=== PATIENT | male | born 1985 | race Caucasian/White ===

== ENCOUNTER → 2023-01-16 | Outpatient (CLI) | payer BC ==
--- NOTE | 2023-01-16 15:23 | US ---
EXAMINATION TYPE: US Aorta Screening DATE OF EXAM: 01/16/2023 COMPARISON: NONE CLINICAL INDICATION: Male, 37 years old with history of Z82.49 FAMILY HISTORY OF ISCHEMIC HEART DISEA SE; family history of FL's and aortic AAA, no symptoms himself TECHNIQUE: Multiple sonographic images of the abdominal aorta are obtained. FINDINGS: EXAM MEASUREMENTS: Abdominal Aorta: Proximal: not seen due to bowel gas Mid: 1.8 x 1.9cm Distal: 1.6 x 1.9cm Bifurcation: 1.0 x 1.5cm 0.9 x 1.2cm [employer] SUPERVISOR NOTES: proximal portion obscured by bowel gas IMPRESSION: 1. The proximal abdominal aorta is obscured and could not be assessed. Otherwise, no evidence for AAA along the mid to distal portions of the abdominal aorta. 2. The right common iliac artery is borderline ectatic at 1.5 cm.
== END | disposition home or self-care (01) ==
LOC: RADUSWWP 08:32
PROVIDERS: ATTEND Family Medicine
DX: I77.811 Abdominal aortic ectasia (principal); Z85.49 Personal history of malignant neoplasm of other male genital organs
CPT/HCPCS: 76706

== ENCOUNTER → 2023-02-12 | Outpatient (CLI) | payer BC ==
--- NOTE | 2023-02-13 10:19 | CA ---
Transthoracic Echo Report Name: Adarsh Hui Age: 37 Gender: M : 1985 Exam Date: 02/12/2023 11:36 Exam Location: [facility] Ht (in): 75 Wt (lb): 185 Ordering Physician: John Salazar MD Attending/Referring Phys: John Salazar MD Music Video Producer Justine Kim, [facility] Procedure CPT: Indications: z82.49 Cardiac Hx: Technical Quality: Good Contrast 1: Total Dose (mL): Contrast 2: Total Dose (mL): MEASUREMENTS (Male / Female) Normal Values 2D ECHO LV Diastolic Diameter PLAX 4.8 cm 4.2 - 5.9 / 3.9 - 5.3 cm LV Systolic Diameter PLAX 3.2 cm IVS Diastolic Thickness 1.0 cm 0.6 - 1.0 / 0.6 - 0.9 cm LVPW Diastolic Thickness 1.0 cm 0.6 - 1.0 / 0.6 - 0.9 cm LV Relative Wall Thickness 0.4 RV Internal Dim ED PLAX 3.0 cm LA Systolic Diameter LX 3.4 cm 3.0 - 4.0 / 2.7 - 3.8 cm LV Diastolic Volume MOD 4C 125.4 cm??? LV Systolic Volume MOD 4C 49.6 cm??? LV Ejection Fraction MOD 4C 60.4 % LV Cardiac Index MOD 4C 1763.0 cm???/min???m??? LV Diastolic Length 4C 9.5 cm LV Systolic Length 4C 7.4 cm LV Diastolic Volume MOD 2C 93.0 cm??? LV Systolic Volume MOD 2C 29.3 cm??? LV Ejection Fraction MOD 2C 68.5 % LV Cardiac Index MOD 2C 1481.9 cm???/min???m??? LV Diastolic Length 2C 9.4 cm LV Systolic Length 2C 7.5 cm LA Volume 47.4 cm??? 18 - 58 / 22 - 52 cm??? M-MODE Aortic Root Diameter MM 3.2 cm MV E Point Septal Separation 0.4 cm AV Cusp Separation MM 2.4 cm DOPPLER AV Peak Velocity 128.4 cm/s AV Peak Gradient 6.6 mmHg MV Area PHT 3.3 cm??? Mitral E Point Velocity 92.8 cm/s Mitral A Point Velocity 46.5 cm/s Mitral E to A Ratio 2.0 MV Deceleration Time 227.6 ms MV E' Velocity 13.6 cm/s Mitral E to MV E' Ratio 6.8 TR Peak Velocity 210.6 cm/s TR Peak Gradient 17.7 mmHg Right Ventricular Systolic Press 22.2 mmHg FINDINGS Left Ventricle Left ventricular ejection fraction is estimated at 55-60 %. Left ventricular cavity size normal. Left ventricular wall thickness normal. Normal left ventricular wall motion. Right Ventricle Normal right ventricular size and function. Right ventricular systolic pressure within normal limits. Right Atrium Normal right atrial size. Left Atrium Normal left atrial size. Mitral Valve Structurally normal mitral valve. No mitral stenosis, regurgitation or prolapse. Aortic Valve Trileaflet aortic valve. No aortic valve stenosis or regurgitation. Tricuspid Valve Structurally normal tricuspid valve. Mild tricuspid regurgitation. Pulmonic Valve Structurally normal pulmonic valve. Pericardium Normal pericardium. No pericardial effusion. Aorta Normal size aortic root and proximal ascending aorta. CONCLUSIONS Normal LV size and systolic function. No significant abnormality in the Doppler exam. No pericardial effusion Previewed by: Dr. Emy Sidhu MD (Electronically Signed) Final Date: 13 February 2023 10:18
== END | disposition home or self-care (01) ==
LOC: RADECHMAIN 11:31
PROVIDERS: ATTEND Family Medicine
DX: Z82.49 Family history of ischemic heart disease and other diseases of the circulatory system (principal)
CPT/HCPCS: 93306